=== PATIENT | female | born 2000 | race Caucasian/White ===

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

== ENCOUNTER 2020-06-27 15:03 | Emergency (ER) | payer OTHER | END 2020-06-27 15:26 | disposition left against medical advice (07) | LOC: MW.ED 15:03 | DX: Z53.21 Procedure and treatment not carried out due to patient leaving prior to being seen by health care provider (principal) ==

== ENCOUNTER 2020-06-29 00:10 | Emergency (ER) | payer OTHER ==
[2020-06-29] MEDS ORDERED: Sodium Chloride 0.9% 2.5 ML Syringe FLUSH PRN (00:34)
[2020-06-29] MEDS ORDERED: Sodium Chloride 0.9% 10 ML Syringe FLUSH PRN (00:34)
[2020-06-29] MEDS ORDERED: Piperacillin/Tazobactam 4.5 GM in Sodium Chloride 0.9% 100 ML IV ONE (00:34)
[2020-06-29] MEDS ORDERED: Morphine 4 MG/ML Syringe IVPUSH ONE (00:37)
[2020-06-29] MEDS ORDERED: Ondansetron 4 MG/2 ML SDV IVPUSH ONE (00:37)
[2020-06-29] MEDS ORDERED: Acetaminophen 500 MG Tab PO ONE (00:38)
--- NOTE | 2020-06-29 00:43 | EDM.PDOC ---
ED HPI GENERAL MEDICAL PROBLEM - General Chief Complaint: General Stated Complaint: ABDOMINAL PAIN, FEVER, BACK PAIN Time Seen by Provider: 06/29/20 00:34 - History of Present Illness INITIAL COMMENTS - FREE TEXT/NARRATIVE: CHIEF COMPLAINT(S): Abdominal pain HISTORY OF PRESENT ILLNESS: This is a 20-year-old woman without any significant past medical history who comes to the emergency department with a chief complaint of abdominal pain. The patient states that yesterday she had a fever of 105. She states that she has been experiencing abdominal pain which is severe 10 out of 10 in the right upper quadrant and right back. She states that she has had some associated nausea but denies any vomiting. She denies any other radiation of the pain. She states that nothing makes the pain better and nothing seems to exacerbate it. It seems to be constant. She denies any dysuria, hematuria, vaginal discharge or vaginal bleeding. She denies any history of kidney stones. She denies any chest pain or shortness of breath. REVIEW OF SYSTEMS: Constitutional: Positive for fever Eyes: Denies eye pain Ears, Nose, Mouth, & Throat: Denies earache Cardiovascular: Denies chest pain Respiratory: Denies shortness of breath Gastrointestinal: Positive for abdominal pain, nausea. Denies vomiting, diarrhea, hematochezia, hematemesis, bilious emesis Genitourinary: Denies hematuria dysuria, vaginal bleeding, vaginal discharge Skin:Denies a rash Neurological: Denies blurred vision Psychiatric: Denies depression PAST MEDICAL HISTORY: As per history of present illness and as reviewed below otherwise noncontributory. SURGICAL HISTORY: As per history of present illness and as reviewed below otherwise noncontributory. SOCIAL HISTORY: As per history of present illness and as reviewed below otherwise noncontributory. FAMILY HISTORY: As per history of present illness and as reviewed below otherwise noncontributory. EXAMINATION OF ORGAN SYSTEMS/BODY AREAS: Constitutional: Blood pressure is 94/67, heart rate 115, respiratory rate 20 with an oxygen saturation of 97% on room air. Temperature 38.8 oral General: Young woman who appears to be in a significant amount of pain and is crying Psychiatric: Appropriate mood and affect. Eyes: No scleral icterus or conjunctival erythema ENMT: Moist mucous membranes. No pharyngeal erythema Cardiovascular: Tachycardic but regular. No gallops, murmurs, or rubs. Bilateral upper extremity pulses symmetric and intact. No peripheral edema. No JVD. Respiratory: Lungs clear to auscultation bilaterally. No wheezes, rales, or rhonchi. Gastrointestinal: Soft, nondistended, severe tenderness to palpation in the right upper quadrant with positive Bustos sign. Negative McBurney sign. No rebound or guarding. Normoactive bowel sounds Genitourinary: No suprapubic tenderness mild right CVA tenderness. Musculoskeletal: Normal range of motion. Skin: No lesions or abrasions. Neurological: Alert, GCS 15 MEDICAL DECISION MAKING AND COURSE IN THE ED WITH INTERPRETATION/REVIEW OF DIAGNOSTIC STUDIES: This is a 20-year-old woman without any significant past medical history who comes to the emergency department with tachycardia, fever, and borderline hypotension with right upper quadrant abdominal pain. There are no signs of a surgical abdomen at this time however differential includes pancreatitis, choledocholithiasis, cholecystitis, pyelonephritis. Will obtain a septic work-up and provide the patient with 30 cc/kg of lactated Ringer's. We will provide the patient with morphine and Zofran. We will also obtain a CT abdomen pelvis with IV contrast. The patient will be placed on cardiac monitoring and pulse oximetry. Will obtain a chest x-ray and a urinalysis. Laboratory: CBC reveals a leukocytosis of 12.3 with left shift. Hemoglobin is 11.9 hematocrit is 34.2. INR is normal. Lactate is 0.8. CMP reveals hyponatremia 133, hyperglycemia at 111, hypoalbuminemia at 2.7. Urinalysis was a clean catch and was small for leukocyte esterase, positive for nitrites, and small for blood. WBC count 4-8. Interpretation: Positive The radiological images were viewed by myself along with reading the report from the radiologist. Chest x-ray does not reveal any acute cardiopulmonary process. CT abdomen pelvis with IV contrast reveals delayed enhancement of the right kidney with ill-defined areas of decreased cortical enhancement. There is mild thickening enhancement of the renal pelvis. This is most likely due to pyelonephritis and infections pyelitis. Cannot rule out renal obstructing stone given IV contrast. After labs and imaging I did reevaluate the patient. I did discuss there at the time and like to admit her to the hospital for IV antibiotics. She stated that she does not want to be admitted and would rather go home. I discussed with her that I do believe that she requires IV antibiotics and admission. At the time of this discussion the patient is alert and oriented x4. I encouraged her to stay however the patient elected to leave AMA. The patient was apprised of the potential risks of leaving the hospital AGAINST MEDICAL ADVICE. They include serious complications, permanent disability, and . At the time of my interview with the patient, the patient was alert, oriented, and capable. I urged the patient to return to the hospital as soon as possible to complete their evaluation and treatment. I encouraged the patient to return to the emergency department. I prescribed the patient with antibiotics and a primary care follow-up. DISPOSITION: Patient left AGAINST MEDICAL ADVICE CONDITION: Serious PROCEDURES: None FINAL IMPRESSION(S)/DIAGNOSES: 1. Acute sepsis secondary to pyelonephritis Chirag Joaquin M.D. generalized Pain Score (Numeric/FACES): 8 - Related Data Allergies Allergy/AdvReac Type Severity Reaction Status Date / Time No Known Allergies Allergy Verified 06/29/20 00:20 Home Meds: Home Meds Amoxicillin 500 mg PO BID 10/30/19 [History] Ciprofloxacin [Ciprofloxacin HCl] 500 mg PO BID #28 tab 06/29/20 [Rx] Past Medical History HEENT History: Reports: None Cardiovascular History: Reports: None Respiratory History: Reports: None Gastrointestinal History: Reports: None Genitourinary History: Reports: None DRESS MARKER History: Reports: None Musculoskeletal History: Reports: None Neurological History: Reports: None Psychiatric History: Reports: None Endocrine/Metabolic History: Reports: None Insulin Pump Model and Glue Cook: None Hematologic History: Reports: None Immunologic History: Reports: None Oncologic (Cancer) History: Reports: None Dermatologic History: Reports: None - Infectious Disease History Infectious Disease History: Reports: None - Past Surgical History Head Surgeries/Procedures: Reports: None Social & Family History - Family History Family Medical History: No Pertinent Family History - Tobacco Use Tobacco Use Status *Q: Current Every Day Tobacco User Years of Tobacco use: 7 Packs/Tins Daily: 0.5 - Caffeine Use Caffeine Use: Reports: None - Recreational Drug Use Recreational Drug Use: No ED ROS GENERAL - Review of Systems Review Of Systems: See Below ED EXAM, GENERAL - Physical Exam Exam: See Below Course - Vital Signs Last Recorded V/S: Last Vital Signs Temp 37.0 C 06/29/20 04:00 Pulse 79 06/29/20 04:00 Resp 18 06/29/20 04:00 BP 104/56 L 06/29/20 04:00 Pulse Ox 98 06/29/20 04:00 - Orders/Labs/Meds Orders: Active Orders 24 hr Category Date Time Status CORONAVIRUS COVID-19 KVNG [MOLEC] Stat Lab 06/29/20 00:43 Ordered CULTURE BLOOD [BC] Stat Lab 06/29/20 00:40 Received CULTURE BLOOD [BC] Stat Lab 06/29/20 00:58 Received CULTURE URINE [RM] Stat Lab 06/29/20 00:25 Received Blood Culture x2 Reflex Set [OM.PC] Stat Oth 06/29/20 00:34 Ordered Pulse Oximetry Continuous Monitoring [OM.PC] Routine Oth 06/29/20 00:34 Ordered Saline Lock Insert [OM.PC] Stat Oth 06/29/20 00:34 Ordered Severe Sepsis Onset Time [OM.PC] Stat Oth 06/29/20 00:34 Ordered Labs: Laboratory Tests 06/29/20 06/29/20 06/29/20 Range/Units 00:25 00:25 00:25 WBC 12.03 H (4.0-11.0) K/uL RBC 3.72 L (4.30-5.90) M/uL Hgb 11.9 L (12.0-16.0) g/dL Hct 34.2 L (36.0-46.0) % MCV 91.9 (80.0-98.0) fL MCH 32.0 (27.0-32.0) pg MCHC 34.8 (31.0-37.0) g/dL RDW Std Deviation 39.5 (28.0-62.0) fl RDW Coeff of Ron 12 (11.0-15.0) % Plt Count 168 (150-400) K/uL MPV 9.90 (7.40-12.00) fL Add Manual Diff YES Neutrophils % (Manual) 60 (48.0-80.0) % Band Neutrophils % 9 % Lymphocytes % (Manual) 17 (16.0-40.0) % Monocytes % (Manual) 14 (0.0-15.0) % Absolute Seg Neuts 7.2 H (1.4-5.7) Band Neutrophils # 1.1 Lymphocytes # (Manual) 2.0 (0.6-2.4) Monocytes # (Manual) 1.7 H (0.0-0.8) INR Lactate (0.20-2.00) mmol/L Sodium (136-145) mmol/L Potassium (3.5-5.1) mmol/L Chloride (98-107) mmol/L Carbon Dioxide (21.0-32.0) mmol/L BUN (7.0-18.0) mg/dL Creatinine (0.6-1.0) mg/dL Est Cr Clr Drug Dosing mL/min Estimated GFR (MDRD) ml/min Glucose (74-106) mg/dL Calcium (8.5-10.1) mg/dL Total Bilirubin (0.2-1.0) mg/dL AST (15-37) IU/L ALT (14-63) IU/L Alkaline Phosphatase (46-116) U/L Total Protein (6.4-8.2) g/dL Albumin (3.4-5.0) g/dL Globulin (2.6-4.0) g/dL Albumin/Globulin Ratio (0.9-1.6) Lipase (73-393) U/L Urine Color YELLOW Urine Appearance SLT CLOUDY Urine pH 6.5 (5.0-8.0) Ur Specific [place] 1.020 (1.001-1.035) Urine Protein 100 H (NEGATIVE) mg/dL Urine Glucose (UA) NEGATIVE (NEGATIVE) mg/dL Urine Ketones NEGATIVE (NEGATIVE) mg/dL Urine Occult Blood SMALL H (NEGATIVE) Urine Nitrite POSITIVE H (NEGATIVE) Urine Bilirubin NEGATIVE (NEGATIVE) Urine Urobilinogen 2.0 H (<2.0) EU/dL Ur Leukocyte Esterase SMALL H (NEGATIVE) Urine RBC 0-1 (0-2/HPF) Urine WBC 4-8 (0-5/HPF) Ur Epithelial Cells FEW (NONE-FEW) Urine Bacteria 2+ H (NEGATIVE) Urine Mucus LIGHT (NONE-MOD) Urine HCG, Qual NEGATIVE (NEGATIVE) 06/29/20 06/29/20 06/29/20 Range/Units 00:25 00:25 00:25 WBC (4.0-11.0) K/uL RBC (4.30-5.90) M/uL Hgb (12.0-16.0) g/dL Hct (36.0-46.0) % MCV (80.0-98.0) fL MCH (27.0-32.0) pg MCHC (31.0-37.0) g/dL RDW Std Deviation (28.0-62.0) fl RDW Coeff of Ron (11.0-15.0) % Plt Count (150-400) K/uL MPV (7.40-12.00) fL Add Manual Diff Neutrophils % (Manual) (48.0-80.0) % Band Neutrophils % % Lymphocytes % (Manual) (16.0-40.0) % Monocytes % (Manual) (0.0-15.0) % Absolute Seg Neuts (1.4-5.7) Band Neutrophils # Lymphocytes # (Manual) (0.6-2.4) Monocytes # (Manual) (0.0-0.8) INR 1.12 Lactate 0.8 (0.20-2.00) mmol/L Sodium 133 L (136-145) mmol/L Potassium 3.9 (3.5-5.1) mmol/L Chloride 99 (98-107) mmol/L Carbon Dioxide 22.1 (21.0-32.0) mmol/L BUN 13 (7.0-18.0) mg/dL Creatinine 1.0 (0.6-1.0) mg/dL Est Cr Clr Drug Dosing 80.75 mL/min Estimated GFR (MDRD) > 60.0 ml/min Glucose 111 H (74-106) mg/dL Calcium 8.6 (8.5-10.1) mg/dL Total Bilirubin 0.4 (0.2-1.0) mg/dL AST 35 (15-37) IU/L ALT 44 (14-63) IU/L Alkaline Phosphatase 91 (46-116) U/L Total Protein 6.8 (6.4-8.2) g/dL Albumin 2.7 L (3.4-5.0) g/dL Globulin 4.1 H (2.6-4.0) g/dL Albumin/Globulin Ratio 0.7 L (0.9-1.6) Lipase 57 L (73-393) U/L Urine Color Urine Appearance Urine pH (5.0-8.0) Ur Specific [place] (1.001-1.035) Urine Protein (NEGATIVE) mg/dL Urine Glucose (UA) (NEGATIVE) mg/dL Urine Ketones (NEGATIVE) mg/dL Urine Occult Blood (NEGATIVE) Urine Nitrite (NEGATIVE) Urine Bilirubin (NEGATIVE) Urine Urobilinogen (<2.0) EU/dL Ur Leukocyte Esterase (NEGATIVE) Urine RBC (0-2/HPF) Urine WBC (0-5/HPF) Ur Epithelial Cells (NONE-FEW) Urine Bacteria (NEGATIVE) Urine Mucus (NONE-MOD) Urine HCG, Qual (NEGATIVE) Meds: Medications Discontinued Medications Generic Name Dose Route Start Last Admin Trade Name Freq PRN Reason Stop Dose Admin Acetaminophen 1,000 mg 06/29/20 00:38 06/29/20 00:48 Tylenol Extra Strength PO 06/29/20 00:39 1,000 mg ONETIME ONE Administration Lactated Ringer's 1,000 mls @ 2,000 mls/hr 06/29/20 00:45 06/29/20 01:23 Ringers, Lactated IV 2,000 mls/hr ASDIRECTED JANNETH Administration Piperacillin Sod/Tazobactam 100 mls @ 200 mls/hr 06/29/20 00:34 06/29/20 01:20 Sod 4.5 gm/ Sodium Chloride IV 06/29/20 01:03 200 mls/hr STAT ONE Administration Vancomycin HCl 1 gm/ Dextrose/ 250 mls @ 167 mls/hr 06/29/20 00:34 06/29/20 01:27 Water IV 06/29/20 02:03 Not Given ONETIME ONE Sodium Chloride 1,000 mls @ 999 mls/hr 06/29/20 00:48 06/29/20 00:49 Normal Saline IV 06/29/20 01:48 999 mls/hr NOW STA Administration Sodium Chloride Confirm 06/29/20 01:14 06/29/20 01:28 Normal Saline (Advbag) Administered 06/29/20 01:15 Not Given Dose 250 mls @ as directed .ROUTE .STK-MED ONE Vancomycin HCl 1 gm/ Sodium 250 mls @ 166 mls/hr 06/29/20 01:21 06/29/20 01:25 Chloride IV 06/29/20 02:51 166 mls/hr NOW STA Administration Iopamidol 100 ml 06/29/20 01:55 06/29/20 01:56 Isovue Multipack-370 (76%) IVPUSH 06/29/20 01:56 100 ml ONETIME STA Administration Morphine Sulfate 4 mg 06/29/20 00:37 06/29/20 00:48 Morphine IVPUSH 06/29/20 00:38 Not Given ONETIME ONE Ondansetron HCl 4 mg 06/29/20 00:37 06/29/20 00:48 Zofran IVPUSH 06/29/20 00:38 4 mg ONETIME ONE Administration Sodium Chloride 10 ml 06/29/20 00:34 Saline Flush FLUSH ASDIRECTED PRN Keep Vein Open Sodium Chloride 2.5 ml 06/29/20 00:34 Saline Flush FLUSH ASDIRECTED PRN Keep Vein Open Vancomycin HCl Confirm 06/29/20 01:14 06/29/20 01:27 Vancocin Administered 06/29/20 01:15 Not Given Dose 1 gm .ROUTE .STK-MED ONE Departure - Departure Time of Disposition: 04:00 Disposition: Against Medical Advice 07 Condition: Serious Clinical Impression: Pyelonephritis - Discharge Information *PRESCRIPTION DRUG MONITORING PROGRAM REVIEWED*: No *COPY OF PRESCRIPTION DRUG MONITORING REPORT IN PATIENT STEF: No Prescriptions: Ciprofloxacin [Ciprofloxacin HCl] 500 mg PO BID #28 tab Instructions: Pyelonephritis, Adult, Pyelonephritis, Adult, [id number] Referrals: PCP,None [Primary Care Provider] - Forms: ED Department Discharge Additional Instructions: Your evaluated today on an emergent basis. I do believe you require admission for IV antibiotics given the infection in your kidney. Given the contrasted study we used we cannot rule out a kidney stone as the cause of the infection. You have elected to sign AGAINST MEDICAL ADVICE today. Please return to the emergency department for further evaluation and treatment. I did prescribe you ciprofloxacin 500 mg to be taken twice a day for the next 14 days. Take Tylenol and Motrin for fever and pain. You will be given a primary care physician contact in order to arrange follow-up. However we do recommend returning to the emergency department. The patient was apprised of the potential risks of leaving the hospital AGAINST MEDICAL ADVICE. They include serious complications, permanent disability, and . At the time of my interview with the patient, the patient was alert, oriented, and capable. I urged the patient to return to the hospital as soon as possible to complete their evaluation and treatment. [facility] - Primary Care [address] [place] [address] [facility] [address] [place] [address] The patient is informed of any results of their evaluation and diagnostic workup and all questions are answered. They are given discharge instructions and return precautions. The patient is stable for discharge. The patient states they understand and agree with the plan and that they will return if their symptoms get worse or if they have any new concerns. The following information is given to patients seen in the emergency department who are being discharged to home. This information is to outline your options for follow-up care. We provide all patients seen in our emergency department with a follow-up referral. The need for follow-up, as well as the timing and circumstances, are variable depending upon the specifics of your emergency department visit. If you don't have a primary care physician on staff, we will provide you with a referral. We always advise you to contact your personal physician following an emergency department visit to inform them of the circumstance of the visit and for follow-up with them and/or the need for any referrals to a consulting specialist. The emergency department will also refer you to a specialist when appropriate. This referral assures that you have the opportunity for follow-up care with a specialist. All of these measure are taken in an effort to provide you with optimal care, which includes your follow-up. Under all circumstances we always encourage you to contact your private physician who remains a resource for coordinating your care. When calling for follow-up care, please make the office aware that this follow-up is from your recent emergency room visit. If for any reason you are refused follow-up, please contact the [facility] Emergency Department at and asked to speak to the emergency department charge nurse. Sepsis Event Note (ED) - Evaluation Sepsis Screening Result: No Definite Risk - Focused Exam Vital Signs: Vital Signs Temp Temp Pulse Resp BP Pulse Ox 06/29/20 04:00 37.0 C 79 18 104/56 L 98 06/29/20 01:55 38.2 C H 105 H 18 104/58 L 97 06/29/20 01:15 100 20 116/67 99 06/29/20 00:20 38.8 C H 115 H 20 94/67 97 - My Orders Last 24 Hours: My Active Orders 06/29/20 00:25 CULTURE URINE [RM] Stat 06/29/20 00:34 Blood Culture x2 Reflex Set [OM.PC] Stat Pulse Oximetry Continuous Monitoring [OM.PC] Routine Saline Lock Insert [OM.PC] Stat Severe Sepsis Onset Time [OM.PC] Stat 06/29/20 00:40 CULTURE BLOOD [BC] Stat 06/29/20 00:43 CORONAVIRUS COVID-19 KVNG [MOLEC] Stat 06/29/20 00:58 CULTURE BLOOD [BC] Stat - Assessment/Plan Last 24 Hours: My Active Orders 06/29/20 00:25 CULTURE URINE [RM] Stat 06/29/20 00:34 Blood Culture x2 Reflex Set [OM.PC] Stat Pulse Oximetry Continuous Monitoring [OM.PC] Routine Saline Lock Insert [OM.PC] Stat Severe Sepsis Onset Time [OM.PC] Stat 06/29/20 00:40 CULTURE BLOOD [BC] Stat 06/29/20 00:43 CORONAVIRUS COVID-19 KVNG [MOLEC] Stat 06/29/20 00:58 CULTURE BLOOD [BC] Stat
[2020-06-29] MEDS ORDERED: Lactated Ringers 1,000 ML IV SCH (00:45)
[2020-06-29] MEDS ORDERED: Sodium Chloride 0.9% 1,000 ML IV STA (00:48)
[2020-06-29 00:53] LABS: BLOOD UREA NITROGEN,BUN 13 mg/dL (7.0-18.0); CARBON DIOXIDE,CO2 22.1 mmol/L (21.0-32.0); CHLORIDE,CL 99 mmol/L (98-107); GLUCOSE RANDOM 111 mg/dL (74-106); LIPASE 57 U/L (73-393); POTASSIUM,K 3.9 mmol/L (3.5-5.1); SODIUM,NA 133 mmol/L (136-145)
--- NOTE | 2020-06-29 01:06 | CR ---
INDICATION: Sepsis TECHNIQUE: Chest radiograph 1 view COMPARISON: None FINDINGS: Mediastinum: The mediastinum is normal in appearance. The heart silhouette is normal in size and morphology. Lung: Both lungs are unremarkable in appearance. No sign of pleural effusion seen. No pneumothorax is identified. Bone and Soft tissue: Unremarkable for age. IMPRESSION: 1. No acute cardiopulmonary disease is seen. Dictated by: Andrew Logan MD @ 06/29/2020 01:04:50 (Electronically Signed)
[2020-06-29] MEDS ORDERED: Vancomycin 1 GM AdvVial ONE (01:14)
[2020-06-29] MEDS ORDERED: Sodium Chloride 0.9% 250 ML ONE (01:14)
[2020-06-29] MEDS ORDERED: Iopamidol 755 MG/ML 500 ML Multipack Bottle IVPUSH STA (01:55)
--- NOTE | 2020-06-29 02:14 | CT ---
INDICATION: Abdominal pain right upper quadrant TECHNIQUE: CT Abdomen and pelvis with i.v. contrast. Coronal and sagittal reformats were obtained. CONTRAST: 100 mL Isovue 370 COMPARISON: None FINDINGS: Lower chest: Unremarkable. Liver: Unremarkable. Spleen: Unremarkable. Pancreas: Unremarkable. Gallbladder: Unremarkable. Kidney: Delayed enhancement of the right kidney is present with ill-defined areas of decreased cortical enhancement seen. Mild thickening and enhancement of the renal pelvis urothelium is seen. Small cortical cysts are present within the right kidney, measuring up to 1.6 cm. Contrast excretion is seen within the left renal collecting system which limits evaluation for renal stones. Adrenal: Unremarkable. Bowel: Unremarkable. The appendix is normal in appearance and size. The appendix is best seen on coronal images 38-39. Vascular: Unremarkable. Lymph: Unremarkable. Peritoneum: Unremarkable. No pneumoperitoneum is seen. No significant ascites is noted. Pelvis: There is a cyst or follicle present in the left ovary measuring 2.3 cm. Soft tissue: Unremarkable. Bone: Unremarkable for age. IMPRESSION: 1. Delayed enhancement of the right kidney is present with ill-defined areas of decreased cortical enhancement seen. Mild thickening and enhancement of the renal pelvis urothelium is seen. The cortical and urothelial findings are most likely due to pyelonephritis and infectious pyelitis. While no obstructing hyperdense calculi or significant hydroureter identified, the remote possibility of a renal obstruction cannot be completely excluded. Dictated by Andrew Logan MD @ 06/29/2020 2:13:26 AM Please note that all CT scans at this facility use dose modulation, iterative reconstruction, and/or weight-based dosing when appropriate to reduce radiation dose to as low as reasonably achievable. Dictated by: Andrew Logan MD @ 06/29/2020 02:13:31 (Electronically Signed)
== END 2020-06-29 04:00 | disposition left against medical advice (07) ==
LOC: MW.ED 00:10
DX: A41.9 Sepsis, unspecified organism (principal); N12 Tubulo-interstitial nephritis, not specified as acute or chronic; E87.1 Hypo-osmolality and hyponatremia; F17.210 Nicotine dependence, cigarettes, uncomplicated
CPT/HCPCS: 36415; 71045; 74177; 80053; 81001; 81025; 83605; 83690; 85025; 85610; 87040; 87086; 87088; 87186; 96365; 96367; 96375; 99284; A9270; J2405; J2543; J3370; J7030; J7050; J7120; Q9967; 99283

== ENCOUNTER 2020-08-21 02:57 | Emergency (ER) | payer OTHER ==
--- NOTE | 2020-08-21 03:17 | EDM.PDOC ---
ED HPI GENERAL MEDICAL PROBLEM - General Chief Complaint: Behavioral/Psych Stated Complaint: EMERGENCY COMMITTAL Time Seen by Provider: 08/21/20 03:10 - History of Present Illness INITIAL COMMENTS - FREE TEXT/NARRATIVE: HISTORY AND PHYSICAL: History of present illness: This is a 20-year-old female who presents to the ER today under the custody of the [facility] department secondary to concerns of a suicide attempt. Per [facility]'s deputy, they were dispatched to patient's home secondary to concern regarding possible overdose. Upon arrival to the home they obtained history from the patient's boyfriend. According to the boyfriend, the deputy sheriff generalist/bailiff reports that earlier this evening, the patient and her boyfriend got into an argument and the patient grabbed a loaded revolver. The patient and her boyfriend were both outside in the front yard and making threats of self-harm. According to the boyfriend, the patient kept putting the gun up against her head making comments that she would harm herself. Apparently both the boyfriend and the patient were on their knees when this was occurring and the boyfriend was pleading for her not to shoot herself. At some point, the boyfriend reports that he was able to remove the gun from her custody. The patient went inside the house and shortly after being inside her home, the boyfriend found her unresponsive on the bed. At this point, he had a friend who was there called 911 secondary to concerns of an overdose. Upon arrival by the [facility] deputies however, the patient was alert and awake and taking a shower. They report that they knocked on the bathroom door and she willingly opened the door and came out on her own. At this point, after hearing the story from the boyfriend, the property insurance inspector's placed a hold on her and brought her to the ER for psychiatric admission secondary to concerns regarding self-harm and placing a gun to her forehead. The [facility] department reports that the boyfriend told him that approximately 6 months ago the patient was 20 pounds heavier than she is now and that she has been utilizing a significant amount of methamphetamines. Upon my evaluation of the patient, she does not deny that all this happened but she reports that she was just making empty threats and that she reports that the gun was not loaded. According to the Human Resources Supervisor's deputies, their evaluation of the gun reported that the gun was indeed loaded when they arrived. Patient denies any history of hypertension, diabetes, liver, lung, kidney problems. She reports that she was recently diagnosed with a urinary tract infection. Patient denies any abdominal or chest surgeries. Patient has no known drug allergies. Patient denies any tobacco alcohol or drugs to me although there is a question of methamphetamine use and the police report that she does have outstanding warrants. Patient denies any recent fevers, shakes, chills, nausea, vomiting, diarrhea. Patient reports that she does have some dysuria and some left-sided flank pain and suprapubic discomfort. Patient denies any melena or bright red blood per rectum. Patient has any chest pain or shortness of breath. Review of systems: As per history of present illness and below otherwise all systems reviewed and negative. Past medical history: As per history of present illness and as reviewed below otherwise noncontributory. Surgical history: As per history of present illness and as reviewed below otherwise noncontributory. Social history: No reported history of drug or alcohol abuse. Family history: As per history of present illness and as reviewed below otherwise noncontribu tory. Physical exam: This patient was seen and evaluated during the 2019 SARS-CoV-2 novel coronavirus pandemic period. Community viral transmission is ongoing at time of this encounter and the emergency department is operating under pandemic response procedures. Constitutional: Patient is oriented to person, place, and time. Appears well- developed and well-nourished. No distress. HEENT: Moist mucous membranes Head: Normocephalic and atraumatic Eyes: Right eye exhibits no discharge. Left eye exhibits no discharge. No scleral icterus Neck: Normal range of motion. No tracheal deviation present. Cardiovascular: Normal rate and regular rhythm. Pulmonary: Effort normal, no respiratory distress. Abd: Soft, nondistended, no rebound/guarding, no psoas or obturator signs, no tenderness at Mcberney's point, no Bustos's sign. Pt does not present with an exam that would be consistent with an acute surgical abdomen at this time, mild tenderness palpation suprapubic region Musculoskeletal: Normal range of motion Neurologic: Alert and oriented to person, place and time. Skin: [place], warm and dry. Psychiatric: Normal mood and affect. Behavior is normal. Judgment and thought content normal. Nursing note and vital signs have been reviewed Diagnostics: CBC, CMP, urinalysis, acetaminophen, salicylate, EKG, UDS, test, EKG, coronavirus test Therapeutics: [] Assessment and plan: This is a 20-year-old female who presents ER today as a court hold by [facility] deputy secondary to concerns of suicidality. Per [facility] department, patient had placed a gun to her head and made threats of harming herself to her boyfriend. Patient reports that she does have a history of depression, anxiety in the past. She reports that she has had 1 admission approximately 5 to 6 years ago as a child secondary to depression and suicidal ideation. Patient reports to me that she has a daughter and that she is currently not suicidal and that she "would never harm herself because of her child. " Patient's labs were reviewed which were unremarkable. Patient with normal CBC, CMP, acetaminophen/salicylate negative, urine drug screen positive for methamphetamine, urinalysis consistent with urinary tract infection. 1. UTI: Patient will get started on Pyridium and Macrobid here in the ED. Patient will need to be on Macrobid 100 mg p.o. twice daily x7 days and Pyridium 200 mg p.o. 3 times daily x2 days to assist with discomfort. Two. Suicidal ideation/suicide attempt: I discussed the case with Dr. Delgado at [facility] and she is agreed to assist with excepting patient for transfer for further mental health evaluation. [facility] contacted: No available psychiatric beds [facility] contacted: No available psychiatric beds [facility] Patient be transferred to [facility] under custody of [facility] deputy. Definitive disposition and diagnosis as appropriate pending reevaluation and review of above. upper abdomen/back Pain Score (Numeric/FACES): 1 - Related Data Allergies Allergy/AdvReac Type Severity Reaction Status Date / Time No Known Allergies Allergy Verified 08/21/20 03:12 Home Meds: Home Meds . [No Known Home Meds] 08/21/20 [History] Past Medical History HEENT History: Reports: None Cardiovascular History: Reports: None Respiratory History: Reports: None Gastrointestinal History: Reports: None Genitourinary History: Reports: None TIME CHECKER History: Reports: None Musculoskeletal History: Reports: None Neurological History: Reports: None Psychiatric History: Reports: None Endocrine/Metabolic History: Reports: None Insulin Pump Model and Public Address System Installer: None Hematologic History: Reports: None Immunologic History: Reports: None Oncologic (Cancer) History: Reports: None Dermatologic History: Reports: None - Infectious Disease History Infectious Disease History: Reports: None - Past Surgical History Head Surgeries/Procedures: Reports: None Social & Family History - Family History Family Medical History: No Pertinent Family History - Caffeine Use Caffeine Use: Reports: None ED ROS GENERAL - Review of Systems Review Of Systems: See Below ED EXAM, GENERAL - Physical Exam Exam: See Below #1 Interpretation EKG Interpretation Comments: EKG: As interpreted by ER physician: Nicky: Nonspecific ST-T wave abnormalities Normal axis No evidence of ST elevation VT Normal sinus rhythm heart rate of 69 Course - Vital Signs Last Recorded V/S: Last Vital Signs Temp 97.8 F 08/21/20 03:01 Pulse 64 08/21/20 04:48 Resp 16 08/21/20 04:48 BP 119/64 08/21/20 04:48 Pulse Ox 97 08/21/20 04:48 - Orders/Labs/Meds Orders: Active Orders 24 hr Category Date Time Status EKG Documentation Completion [RC] STAT Care 08/21/20 03:09 Active CULTURE URINE [RM] Stat Lab 08/21/20 04:24 Received Labs: Laboratory Tests 08/21/20 08/21/20 08/21/20 Range/Units 03:13 03:13 03:17 WBC 8.83 (4.0-11.0) K/uL RBC 4.08 L (4.30-5.90) M/uL Hgb 12.8 (12.0-16.0) g/dL Hct 38.8 (36.0-46.0) % MCV 95.1 (80.0-98.0) fL MCH 31.4 (27.0-32.0) pg MCHC 33.0 (31.0-37.0) g/dL RDW Std Deviation 46.9 (28.0-62.0) fl RDW Coeff of Ron 14 (11.0-15.0) % Plt Count 454 H (150-400) K/uL MPV 9.30 (7.40-12.00) fL Neut % (Auto) 55.6 (48.0-80.0) % Lymph % (Auto) 36.7 (16.0-40.0) % [place] % (Auto) 5.9 (0.0-15.0) % Eos % (Auto) 0.6 (0.0-7.0) % Baso % (Auto) 1.2 (0.0-1.5) % Neut # (Auto) 4.9 (1.4-5.7) K/uL Lymph # (Auto) 3.2 H (0.6-2.4) K/uL [place] # (Auto) 0.5 (0.0-0.8) K/uL Eos # (Auto) 0.1 (0.0-0.7) K/uL Baso # (Auto) 0.1 (0.0-0.1) K/uL Nucleated RBC % 0.0 /100WBC Nucleated RBCs # 0 K/uL Sodium 139 (136-145) mmol/L Potassium 3.7 (3.5-5.1) mmol/L Chloride 103 (98-107) mmol/L Carbon Dioxide 26.0 (21.0-32.0) mmol/L BUN 11 (7.0-18.0) mg/dL Creatinine 1.0 (0.6-1.0) mg/dL Est Cr Clr Drug Dosing 80.75 mL/min Estimated GFR (MDRD) > 60.0 ml/min Glucose 98 (74-106) mg/dL Calcium 9.0 (8.5-10.1) mg/dL Magnesium 2.1 (1.8-2.4) mg/dL Total Bilirubin 0.5 (0.2-1.0) mg/dL AST 16 (15-37) IU/L ALT 22 (14-63) IU/L Alkaline Phosphatase 76 (46-116) U/L Total Protein 7.2 (6.4-8.2) g/dL Albumin 3.5 (3.4-5.0) g/dL Globulin 3.7 (2.6-4.0) g/dL Albumin/Globulin Ratio 0.9 (0.9-1.6) TSH 3rd Generation 1.19 (0.52-4.13) uIU/mL Urine Color Urine Appearance Urine pH (5.0-8.0) Ur Specific [place] (1.001-1.035) Urine Protein (NEGATIVE) mg/dL Urine Glucose (UA) (NEGATIVE) mg/dL Urine Ketones (NEGATIVE) mg/dL Urine Occult Blood (NEGATIVE) Urine Nitrite (NEGATIVE) Urine Bilirubin (NEGATIVE) Urine Urobilinogen (<2.0) EU/dL Ur Leukocyte Esterase (NEGATIVE) Urine RBC (0-2/HPF) Urine WBC (0-5/HPF) Ur Epithelial Cells (NONE-FEW) Urine Bacteria (NEGATIVE) Urine HCG, Qual (NEGATIVE) Salicylates 2.9 (0-20) mg/dL Urine Opiates Screen (NEGATIVE) Ur Oxycodone Screen (NEGATIVE) Urine Methadone Screen (NEGATIVE) Acetaminophen <2.0 ug/mL Ur Barbiturates Screen (NEGATIVE) Ur Phencyclidine Scrn (NEGATIVE) Ur Amphetamine Screen (NEGATIVE) U Methamphetamines Scrn (NEGATIVE) U Benzodiazepines Scrn (NEGATIVE) U Cocaine Metab Screen (NEGATIVE) U Marijuana (THC) Screen (NEGATIVE) Ethyl Alcohol <3 mg/dL SARS-CoV-2 RNA (KVNG) NEGATIVE (NEGATIVE) 08/21/20 08/21/20 08/21/20 Range/Units 04:24 04:24 04:24 WBC (4.0-11.0) K/uL RBC (4.30-5.90) M/uL Hgb (12.0-16.0) g/dL Hct (36.0-46.0) % MCV (80.0-98.0) fL MCH (27.0-32.0) pg MCHC (31.0-37.0) g/dL RDW Std Deviation (28.0-62.0) fl RDW Coeff of Ron (11.0-15.0) % Plt Count (150-400) K/uL MPV (7.40-12.00) fL Neut % (Auto) (48.0-80.0) % Lymph % (Auto) (16.0-40.0) % [place] % (Auto) (0.0-15.0) % Eos % (Auto) (0.0-7.0) % Baso % (Auto) (0.0-1.5) % Neut # (Auto) (1.4-5.7) K/uL Lymph # (Auto) (0.6-2.4) K/uL [place] # (Auto) (0.0-0.8) K/uL Eos # (Auto) (0.0-0.7) K/uL Baso # (Auto) (0.0-0.1) K/uL Nucleated RBC % /100WBC Nucleated RBCs # K/uL Sodium (136-145) mmol/L Potassium (3.5-5.1) mmol/L Chloride (98-107) mmol/L Carbon Dioxide (21.0-32.0) mmol/L BUN (7.0-18.0) mg/dL Creatinine (0.6-1.0) mg/dL Est Cr Clr Drug Dosing mL/min Estimated GFR (MDRD) ml/min Glucose (74-106) mg/dL Calcium (8.5-10.1) mg/dL Magnesium (1.8-2.4) mg/dL Total Bilirubin (0.2-1.0) mg/dL AST (15-37) IU/L ALT (14-63) IU/L Alkaline Phosphatase (46-116) U/L Total Protein (6.4-8.2) g/dL Albumin (3.4-5.0) g/dL Globulin (2.6-4.0) g/dL Albumin/Globulin Ratio (0.9-1.6) TSH 3rd Generation (0.52-4.13) uIU/mL Urine Color YELLOW Urine Appearance SLT CLOUDY Urine pH 5.5 (5.0-8.0) Ur Specific [place] 1.010 (1.001-1.035) Urine Protein NEGATIVE (NEGATIVE) mg/dL Urine Glucose (UA) NEGATIVE (NEGATIVE) mg/dL Urine Ketones NEGATIVE (NEGATIVE) mg/dL Urine Occult Blood NEGATIVE (NEGATIVE) Urine Nitrite POSITIVE H (NEGATIVE) Urine Bilirubin NEGATIVE (NEGATIVE) Urine Urobilinogen 0.2 (<2.0) EU/dL Ur Leukocyte Esterase SMALL H (NEGATIVE) Urine RBC 0-2 (0-2/HPF) Urine WBC 55-60 (0-5/HPF) Ur Epithelial Cells MANY (NONE-FEW) Urine Bacteria 2+ H (NEGATIVE) Urine HCG, Qual NEGATIVE (NEGATIVE) Salicylates (0-20) mg/dL Urine Opiates Screen NEGATIVE (NEGATIVE) Ur Oxycodone Screen NEGATIVE (NEGATIVE) Urine Methadone Screen NEGATIVE (NEGATIVE) Acetaminophen ug/mL Ur Barbiturates Screen NEGATIVE (NEGATIVE) Ur Phencyclidine Scrn NEGATIVE (NEGATIVE) Ur Amphetamine Screen POSITIVE (NEGATIVE) U Methamphetamines Scrn POSITIVE (NEGATIVE) U Benzodiazepines Scrn NEGATIVE (NEGATIVE) U Cocaine Metab Screen NEGATIVE (NEGATIVE) U Marijuana (THC) Screen NEGATIVE (NEGATIVE) Ethyl Alcohol mg/dL SARS-CoV-2 RNA (KVNG) (NEGATIVE) Meds: Medications Discontinued Medications Generic Name Dose Route Start Last Admin Trade Name Freq PRN Reason Stop Dose Admin Nitrofurantoin Macrocrystals 100 mg 08/21/20 05:32 Macrobid PO 08/21/20 05:33 ONETIME ONE Departure - Departure Time of Disposition: 05:45 Disposition: DC/Tfer to Psych Hosp/Unit 65 Condition: Good Clinical Impression: Depressive disorder, Self-harm, Suicidal ideation, Methamphetamine abuse Urinary tract infection Qualifiers: Urinary tract infection type: acute cystitis Hematuria presence: without hematuria Qualified Code(s): N30.00 - Acute cystitis without hematuria - Discharge Information Referrals: PCP,None [Primary Care Provider] - Forms: ED Department Discharge Sepsis Event Note (ED) - Focused Exam Vital Signs: Vital Signs Temp Pulse Resp BP Pulse Ox 08/21/20 04:48 64 16 119/64 97 08/21/20 03:50 67 16 120/77 98 08/21/20 03:20 74 16 109/66 99 08/21/20 03:01 97.8 F 78 16 114/69 97 - My Orders Last 24 Hours: My Active Orders 08/21/20 03:09 EKG Documentation Completion [RC] STAT 08/21/20 04:24 CULTURE URINE [RM] Stat - Assessment/Plan Last 24 Hours: My Active Orders 08/21/20 03:09 EKG Documentation Completion [RC] STAT 08/21/20 04:24 CULTURE URINE [RM] Stat
[2020-08-21 03:50] LABS: BLOOD UREA NITROGEN,BUN 11 mg/dL (7.0-18.0); CHLORIDE,CL 103 mmol/L (98-107); GLUCOSE RANDOM 98 mg/dL (74-106); POTASSIUM,K 3.7 mmol/L (3.5-5.1); SODIUM,NA 139 mmol/L (136-145)
[2020-08-21 03:51] LABS: ACETAMINOPHEN <2.0 ug/mL
[2020-08-21] MEDS ORDERED: Nitrofurantoin Monohydrate/Macrocrystalline 100 MG Cap PO ONE (05:32)
[2020-08-21] MEDS ORDERED: Phenazopyridine 200 MG Tab PO ONE (05:48)
== END 2020-08-21 06:20 ==
LOC: MW.ED 02:57
DX: F32.9 Major depressive disorder, single episode, unspecified (principal); N30.00 Acute cystitis without hematuria; F15.10 Other stimulant abuse, uncomplicated; Z20.822 Contact with and (suspected) exposure to COVID-19
CPT/HCPCS: 36415; 80053; 80143; 80179; 80305; 80307; 81001; 81025; 83735; 84443; 85025; 87086; 87635; 93005; 99285; A9270; 93010; 99284; U0002

== ENCOUNTER 2021-04-16 18:18 | Emergency (ER) | payer OTHER ==
--- NOTE | 2021-04-16 21:04 | EDM.PDOC ---
ED HPI GENERAL MEDICAL PROBLEM - General Chief Complaint: Abdominal Pain Stated Complaint: STOMACH PAIN Time Seen by Provider: 04/16/21 19:43 - History of Present Illness INITIAL COMMENTS - FREE TEXT/NARRATIVE: HISTORY AND PHYSICAL: History of present illness: This is a 21-year-old female with a history significant for kidney infection in the past who denies any history of kidney stones who presents ER today complaining of bilateral lower back pain consistent with her prior kidney infections. Patient has any recent fevers, shakes, chills, nausea, vomiting, diarrhea, dysuria, frequency, urgency, hematuria. Patient reports that she has been able to tolerate p.o. solids and liquids well. Patient denies any vaginal discharge. Review of systems: As per history of present illness and below otherwise all systems reviewed and negative. Past medical history: As per history of present illness and as reviewed below otherwise noncontributory. Surgical history: As per history of present illness and as reviewed below otherwise noncontributory. Social history: No reported history of drug abuse. Family history: As per history of present illness and as reviewed below otherwise noncontributory. Physical exam: This patient was seen and evaluated during the 2019 SARS-CoV-2 novel coronavirus pandemic period. Community viral transmission is ongoing at time of this encounter and the emergency department is operating under pandemic response procedures. Constitutional: Patient is oriented to person, place, and time. Appears well- developed and well-nourished. No distress. HEENT: Moist mucous membranes Head: Normocephalic and atraumatic Eyes: Right eye exhibits no discharge. Left eye exhibits no discharge. No scleral icterus Neck: Normal range of motion. No tracheal deviation present. Cardiovascular: Normal rate and regular rhythm. Pulmonary: Effort normal, no respiratory distress. Abd: Soft, nondistended, no rebound/guarding, no psoas or obturator signs, no tenderness at Mcberney's point, no Bustos's sign. Pt does not present with an exam that would be consistent with an acute surgical abdomen at this time. Mild tenderness palpation to the suprapubic region. Musculoskeletal: Normal range of motion Neurologic: Alert and oriented to person, place and time. Skin: [place], warm and dry. Psychiatric: Normal mood and affect. Behavior is normal. Judgment and thought content normal. Nursing note and vital signs have been reviewed Patient complaining of tenderness palpation to her bilateral flank areas. Patient does not present with signs and symptoms consistent with retroperiton eal-itis. Diagnostics: [] Therapeutics: [] Assessment and plan: 21-year-old female who presents ER today secondary to concern for kidney infections. Urinalysis and urine test were ordered and patient was sent to the bathroom in order to obtain a sample. I was notified by the RN at approximately 8:45 PM that the patient is no longer in her room that she left prior to completion of her evaluation. No urine has been obtained from the patient at this time. Definitive disposition and diagnosis as appropriate pending reevaluation and review of above. lower back Pain Score (Numeric/FACES): 8 - Related Data Allergies Allergy/AdvReac Type Severity Reaction Status Date / Time No Known Allergies Allergy Verified 04/16/21 19:25 Home Meds: Home Meds Gabapentin [Neurontin] 1 tab PO BID 04/16/21 [History] Past Medical History - Past Health History Medical/Surgical History: Denies Medical/Surgical History HEENT History: Reports: None, Other (See Below) Other HEENT History: surgery to bifurcate tongue (cosmetic) Cardiovascular History: Reports: None Respiratory History: Reports: None Gastrointestinal History: Reports: None Genitourinary History: Reports: Pyelonephritis Other Genitourinary History: states close to renal failure MATERIAL CONTROL ASSOCIATE History: Reports: None Musculoskeletal History: Reports: None Neurological History: Reports: None Psychiatric History: Reports: ADHD, Anxiety, Depression Endocrine/Metabolic History: Reports: None Insulin Pump Model and Loin Puller: None Hematologic History: Reports: None Immunologic History: Reports: None Oncologic (Cancer) History: Reports: None Dermatologic History: Reports: None - Infectious Disease History Infectious Disease History: Reports: None - Past Surgical History Head Surgeries/Procedures: Reports: None HEENT Surgical History: Reports: None, Oral Surgery Social & Family History - Family History Family Medical History: No Pertinent Family History - Tobacco Use Tobacco Use Status *Q: Current Every Day Tobacco User Years of Tobacco use: 5 Packs/Tins Daily: 0.5 - Caffeine Use Caffeine Use: Reports: Coffee, Energy Drinks, Soda, Tea - Recreational Drug Use Recreational Drug Use: Yes Recreational Drug Type: Reports: Marijuana/Hashish ED ROS GENERAL - Review of Systems Review Of Systems: See Below ED EXAM, GENERAL - Physical Exam Exam: See Below Course - Vital Signs Last Recorded V/S: Last Vital Signs Temp 97.7 F 04/16/21 19:21 Pulse 91 04/16/21 19:21 Resp 20 04/16/21 19:21 BP 109/66 04/16/21 19:21 Pulse Ox 100 04/16/21 19:21 - Orders/Labs/Meds Orders: Active Orders 24 hr Category Date Time Status HCG QUALITATIVE,URINE [URCHEM] Stat Lab 04/16/21 19:20 Ordered UA RFX FRANKIE AND CULT IF INDIC [URIN] Stat Lab 04/16/21 19:20 Ordered Departure - Departure Time of Disposition: 21:04 Disposition: Against Medical Advice 07 Condition: Undetermined Clinical Impression: Back pain, Left against medical advice - Discharge Information Referrals: PCP,None [Primary Care Provider] - Sepsis Event Note (ED) - Evaluation Sepsis Screening Result: No Definite Risk - Focused Exam Vital Signs: Vital Signs Temp Pulse Resp BP Pulse Ox 04/16/21 19:21 97.7 F 91 20 109/66 100
== END 2021-04-16 20:20 | disposition left against medical advice (07) ==
LOC: MW.ED 18:18
DX: M54.50 Low back pain, unspecified (principal); Z72.0 Tobacco use
CPT/HCPCS: 99283

== ENCOUNTER 2021-05-26 03:16 | Emergency (ER) | payer SELFPAY ==
[2021-05-26] MEDS ORDERED: Nitrofurantoin Monohydrate/Macrocrystalline 100 MG Cap PO ONE (03:55)
[2021-05-26] MEDS ORDERED: Acetaminophen 325 MG Tab PO ONE (03:59)
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
== END 2021-05-26 04:28 | disposition home or self-care (01) ==
LOC: MW.ED 03:16
DX: S30.0XXA Contusion of lower back and pelvis, initial encounter (principal); N39.0 Urinary tract infection, site not specified; Z72.0 Tobacco use; X58.XXXA Exposure to other specified factors, initial encounter
CPT/HCPCS: 81001; 99283; A9270

== ENCOUNTER 2021-05-31 00:36 | Emergency (ER) | payer SELFPAY ==
--- NOTE | 2021-05-31 00:46 | EDM.PDOC ---
ED HPI GENERAL MEDICAL PROBLEM - General Chief Complaint: Laceration Stated Complaint: FINGER LACERATION Time Seen by Provider: 05/31/21 00:40 - History of Present Illness INITIAL COMMENTS - FREE TEXT/NARRATIVE: History of present illness: [] Patient cut her right index finger just prior to arrival. It was bleeding a lot. She has not had a tetanus shot in the last 5 years. Review of systems: As per history of present illness and below otherwise all systems reviewed and negative. Past medical history: As per history of present illness and as reviewed below otherwise noncontributory. Surgical history: As per history of present illness and as reviewed below otherwise noncontributory. Social history: No reported history of drug or alcohol abuse. Family history: As per history of present illness and as reviewed below otherwise noncontributory. Physical exam: Constitutional - well developed, well-nourished and in no acute distress HEENT - normocephalic, no evidence of trauma - external nose and mouth normal - no mass in neck and no JVD - mucosae moist EYES - full EOM, PERRL, no icterus - no evidence of inflammation, injection, or drainage Respiratory - no respiratory distress, equal bilateral expansion Musculoskeletal no gross deformity of long bones or joints - no tenderness, swelling or edema Neurologic - Alert and oriented times four - CN II-XII grossly intact - motor sensory and coordination symmetrically normal Psychiatric - appropriate mood and affect with normal thought content Hematologic - No petechiae or purpura - mucosa appropriate color and sclera not pale - normal nail bed color and refill Integument -6 mm laceration of the volar distal segment of the second digit of the right hand. No rash or evidence of trauma - normal turgor Diagnostics: [] Therapeutics: [] Impression: [] Plan: [] Definitive disposition and diagnosis as appropriate pending reevaluation and review of above. Right Finger-Index Pain Score (Numeric/FACES): 9 - Related Data Allergies Allergy/AdvReac Type Severity Reaction Status Date / Time No Known Allergies Allergy Verified 05/31/21 00:49 Home Meds: Home Meds . 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) Cardiovascular History: Reports: None Respiratory History: Reports: None Gastrointestinal History: Reports: None Genitourinary History: Reports: Pyelonephritis Other Genitourinary History: states close to renal failure PLATING EQUIPMENT TENDER History: Reports: None Musculoskeletal History: Reports: None Neurological History: Reports: None Psychiatric History: Reports: ADHD, Anxiety, Depression Endocrine/Metabolic History: Reports: None Insulin Pump Model and Social Work Case Manager: None Hematologic History: Reports: None Immunologic History: Reports: None Oncologic (Cancer) History: Reports: None Dermatologic History: Reports: None - Infectious Disease History Infectious Disease History: Reports: None - Past Surgical History Head Surgeries/Procedures: Reports: None HEENT Surgical History: Reports: None, Oral Surgery Social & Family History - Family History Family Medical History: No Pertinent Family History - Caffeine Use Caffeine Use: Reports: Coffee, Energy Drinks, Soda, Tea ED ROS GENERAL - Review of Systems Review Of Systems: Comprehensive ROS is negative, except as noted in HPI. ED EXAM, SKIN/RASH Exam: See Below Text/Narrative:: My physical exam is in the HPI ED SKIN PROCEDURES - Laceration/Wound Repair Right Digit - 2nd (Index) Appearance: Superficial Anesthetic Type: Other (No anesthetic) Skin Prep: Saline Saline Irrigation (cc's): 250 Exploration/Debridement/Repair: In a Bloodless Field Closed with: Wound Adhesive Lac/Wound length In cm: 0.6 Course - Vital Signs Last Recorded V/S: Last Vital Signs Temp 36.7 C 05/31/21 00:46 Pulse 94 05/31/21 00:46 Resp 20 05/31/21 00:46 BP 126/77 05/31/21 00:46 Pulse Ox 97 05/31/21 00:46 - Orders/Labs/Meds Orders: Active Orders 24 hr Category Date Time Status Vaccine to be Administered/Admin Charge [RC] ASDIRECTED Care 05/31/21 00:51 Ordered Diphth,Pertuss(Acell),Tet Vac [Boostrix] Med 05/31/21 00:51 Once 0.5 ml IM .ONCE ONE Departure - Departure Time of Disposition: 00:54 Disposition: Home, Self-Care 01 Condition: Good Clinical Impression: Laceration of right index finger - Discharge Information Instructions: Laceration Care, Adult Referrals: PCP,None [Primary Care Provider] - Forms: ED Department Discharge Additional Instructions: Follow-up primary care [facility] - Primary Care [address] [place] [address] [facility] [address] [place] [address] The following information is given to patients seen in the emergency department who are being discharged to home. This information is to outline your options for follow-up care. We provide all patients seen in our emergency department with a follow-up referral. The need for follow-up, as well as the timing and circumstances, are variable depending upon the specifics of your emergency department visit. If you don't have a primary care physician on staff, we will provide you with a referral. We always advise you to contact your personal physician following an emergency department visit to inform them of the circumstance of the visit and for follow-up with them and/or the need for any referrals to a consulting specialist. The emergency department will also refer you to a specialist when appropriate. This referral assures that you have the opportunity for follow-up care with a specialist. All of these measure are taken in an effort to provide you with optimal care, which includes your follow-up. Under all circumstances we always encourage you to contact your private physician who remains a resource for coordinating your care. When calling for follow-up care, please make the office aware that this follow-up is from your recent emergency room visit. If for any reason you are refused follow-up, please contact the [facility] Emergency Department at and asked to speak to the emergency department charge nurse. Sepsis Event Note (ED) - Focused Exam Vital Signs: Vital Signs Temp Pulse Resp BP Pulse Ox 05/31/21 00:46 36.7 C 94 20 126/77 97 - My Orders Last 24 Hours: My Active Orders 05/31/21 00:51 Vaccine to be Administered/Admin Charge [RC] ASDIRECTED Diphth,Pertuss(Acell),Tet Vac [Boostrix] 0.5 ml IM .ONCE ONE - Assessment/Plan Last 24 Hours: My Active Orders 05/31/21 00:51 Vaccine to be Administered/Admin Charge [RC] ASDIRECTED Sharon Berman(Acell),Tet Vac [Boostrix] 0.5 ml IM .ONCE ONE
[2021-05-31] MEDS ORDERED: Diphtheria,Pertussis(Acell),Tetanus Vaccine 0.5 ML Syringe IM ONE (00:51)
[2021-05-31] MEDS ORDERED: Octyl 2-Cyanoacrylate 1 APPLIC TUBE TOP ONE (00:52)
== END 2021-05-31 01:34 | disposition home or self-care (01) ==
LOC: MW.ED 00:36
DX: S61.210A Laceration without foreign body of right index finger without damage to nail, initial encounter (principal); Z23 Encounter for immunization; W26.8XXA Contact with other sharp object(s), not elsewhere classified, initial encounter
CPT/HCPCS: 12001; 90471; 90715; 99282; A9270

== ENCOUNTER 2022-09-26 21:01 | Emergency (ER) | payer SELFPAY ==
[2022-09-26 22:35] LABS: CARBON DIOXIDE,CO2 30.9 mmol/L (21.0-32.0); POTASSIUM,K 3.6 mmol/L (3.5-5.1)
[2022-09-26] MEDS ORDERED: Ibuprofen 600 MG Tab PO ONE (23:05)
[2022-09-26] MEDS ORDERED: Cephalexin 500 MG Cap PO ONE (23:05)
== END 2022-09-26 23:16 ==
LOC: MW.ED 21:01
DX: K08.89 Other specified disorders of teeth and supporting structures (principal); F15.99 Other stimulant use, unspecified with unspecified stimulant-induced disorder
CPT/HCPCS: 36415; 80053; 80305; 81001; 85025; 87086; 99283; A9270

== ENCOUNTER 2022-10-01 17:37 | Emergency (ER) | payer SELFPAY | END 2022-10-01 19:22 | disposition home or self-care (01) | LOC: MW.ED 17:37 | DX: S00.83XA Contusion of other part of head, initial encounter (principal); W22.09XA Striking against other stationary object, initial encounter | CPT/HCPCS: 99283 ==

== ENCOUNTER 2023-02-26 21:07 | Emergency (ER) | payer SELFPAY ==
[2023-02-26] MEDS ORDERED: Sodium Chloride 0.9% 2.5 ML Syringe FLUSH PRN (21:13)
[2023-02-26] MEDS ORDERED: Ketorolac 30 MG/ML SDV IVPUSH ONE (21:13)
[2023-02-26] MEDS ORDERED: Ondansetron 4 MG/2 ML SDV IVPUSH ONE (21:13)
[2023-02-26] MEDS ORDERED: Sodium Chloride 0.9% 10 ML Syringe FLUSH PRN (21:13)
[2023-02-26] MEDS ORDERED: Sodium Chloride 0.9% 1,000 ML IV ONE (21:13)
[2023-02-26] MEDS ORDERED: LORazepam 2 MG/ML SDV IVPUSH ONE ×2 (21:14→22:25)
[2023-02-26 21:35] LABS: BASOPHILS ABSOLUTE AUTO 0.1 K/uL (0.0-0.1); BASOPHILS PERCENT AUTO 1.1 % (0.0-1.5); EOSINOPHILS PERCENT AUTO 0.4 % (0.0-7.0); HEMATOCRIT 35.7 % (36.0-46.0); HEMOGLOBIN 12.1 g/dL (12.0-16.0); LYMPHOCYTES ABSOLUTE AUTO 2.8 K/uL (0.6-2.4); LYMPHOCYTES PERCENT AUTO 37.3 % (16.0-40.0); MEAN CORPUSCULAR HEMOGLOBIN 31.7 pg (27.0-32.0); MEAN CORPUSCULAR HGB CONC 33.9 g/dL (31.0-37.0); MEAN CORPUSCULAR VOLUME 93.5 fL (80.0-98.0); MONOCYTES ABSOLUTE AUTO 0.9 K/uL (0.0-0.8); MONOCYTES PERCENT AUTO 12.3 % (0.0-15.0); NEUTROPHILS ABSOLUTE AUTO 3.7 K/uL (1.4-5.7); NEUTROPHILS PERCENT AUTO 48.9 % (48.0-80.0); NRBC ABSOLUTE 0 K/uL; PLATELET COUNT,PLT 331 K/uL (150-400); RED BLOOD CELL COUNT 3.82 M/uL (4.30-5.90); WHITE BLOOD CELL COUNT,WBC 7.51 K/uL (4.0-11.0)
[2023-02-26 22:02] LABS: ALANINE AMINOTRANSFERASE,ALT 83 IU/L (14-63); ALBUMIN 3.7 g/dL (3.4-5.0); ALKALINE PHOSPHATASE 74 U/L (46-116); ASPARTATE AMNIOTRANSFERASE,AST 96 IU/L (15-37); BILIRUBIN TOTAL 0.6 mg/dL (0.2-1.0); BLOOD UREA NITROGEN,BUN 16 mg/dL (7.0-18.0); CALCIUM 8.7 mg/dL (8.5-10.1); CARBON DIOXIDE,CO2 24.7 mmol/L (21.0-32.0); CHLORIDE,CL 108 mmol/L (98-107); GLUCOSE RANDOM 113 mg/dL (74-106); LIPASE 13 U/L (16-77); POTASSIUM,K 3.1 mmol/L (3.5-5.1); PROTEIN TOTAL,TP 7.3 g/dL (6.4-8.2); SODIUM,NA 143 mmol/L (136-145)
[2023-02-26 22:03] LABS: ESTIMATED GFR 82 mL/min (>60); ETHANOL BLOOD MEDICAL < 3.0 mg/dL
[2023-02-26] MEDS ORDERED: LORazepam 2 MG/ML SDV ONE (22:19)
[2023-02-26 22:56] LABS: BILIRUBIN,URINE NEGATIVE (NEGATIVE); GLUCOSE,URINE NEGATIVE (NEGATIVE); KETONES,URINE NEGATIVE (NEGATIVE); LEUKOCYTE ESTERASE,URINE TRACE (NEGATIVE); NITRITE,URINE NEGATIVE (NEGATIVE); OCCULT BLOOD,URINE SMALL (NEGATIVE); PROTEIN,URINE 30 mg/dL (NEGATIVE)
[2023-02-26 23:04] LABS: APPEARANCE,URINE CLOUDY; COLOR,URINE AMBER
[2023-02-26 23:05] LABS: BACTERIA,URINE FEW (NEGATIVE); EPITHELIAL CELLS,URINE MODERATE (NONE-FEW); MUCUS,URINE MANY (NONE-MOD); WBC,URINE 16-21 (0-5/HPF)
[2023-02-26 23:06] LABS: AMPHETAMINES SCREEN, URINE PRESUMPTIVE POSITIVE (CUTOFF=500); BARBITURATE SCREEN,URINE NEGATIVE (CUTOFF=200); BENZODIAZEPINES SCREEN,URINE NEGATIVE (CUTOFF=150); BUPRENORPHINE SCREEN,URINE NEGATIVE (CUTOFF=10); METHADONE SCREEN, URINE NEGATIVE (CUTOFF=200); METHAMPHETAMINES SCREEN, URINE PRESUMPTIVE POSITIVE (CUTOFF=500); OXYCODONE SCREEN,URINE NEGATIVE (CUT0FF=100); PCP SCREEN,URINE NEGATIVE (CUTOFF=25); PROPOXYPHENE SCREEN,URINE NEGATIVE (CUTOFF=300); THC SCREEN,URINE 20 NG/ML NEGATIVE (CUTOFF=50)
== END 2023-02-27 03:39 ==
LOC: MW.ED 21:07
DX: R10.30 Lower abdominal pain, unspecified (principal); S93.401A Sprain of unspecified ligament of right ankle, initial encounter; F15.10 Other stimulant abuse, uncomplicated; F14.10 Cocaine abuse, uncomplicated; I10 Essential (primary) hypertension; Z79.899 Other long term (current) drug therapy; Z02.89 Encounter for other administrative examinations
CPT/HCPCS: 36415; 73610; 74176; 80053; 80305; 80307; 81001; 83690; 84703; 85025; 87086; 96361; 96374; 96375; 96376; 99284; J1885; J2060; J2405; J3490; J7030

== ENCOUNTER 2023-03-07 10:12 | Emergency (ER) | payer SELFPAY ==
[2023-03-07 13:44] LABS: APPEARANCE,URINE CLOUDY; BILIRUBIN,URINE NEGATIVE (NEGATIVE); GLUCOSE,URINE NEGATIVE (NEGATIVE); KETONES,URINE TRACE mg/dL (NEGATIVE); LEUKOCYTE ESTERASE,URINE SMALL (NEGATIVE); NITRITE,URINE POSITIVE (NEGATIVE); OCCULT BLOOD,URINE NEGATIVE (NEGATIVE); PROTEIN,URINE TRACE mg/dL (NEGATIVE)
[2023-03-07 13:48] LABS: COLOR,URINE DARK YELLOW
[2023-03-07 13:55] LABS: AMPHETAMINES SCREEN, URINE PRESUMPTIVE POSITIVE (CUTOFF=500); BARBITURATE SCREEN,URINE NEGATIVE (CUTOFF=200); BENZODIAZEPINES SCREEN,URINE NEGATIVE (CUTOFF=150); BUPRENORPHINE SCREEN,URINE NEGATIVE (CUTOFF=10); METHADONE SCREEN, URINE NEGATIVE (CUTOFF=200); METHAMPHETAMINES SCREEN, URINE PRESUMPTIVE POSITIVE (CUTOFF=500); OXYCODONE SCREEN,URINE NEGATIVE (CUT0FF=100); PCP SCREEN,URINE NEGATIVE (CUTOFF=25); PROPOXYPHENE SCREEN,URINE NEGATIVE (CUTOFF=300); THC SCREEN,URINE 20 NG/ML NEGATIVE (CUTOFF=50)
[2023-03-07 13:56] LABS: RBC,URINE 0-2 (0-2/HPF)
[2023-03-07 13:57] LABS: BACTERIA,URINE 4+ (NEGATIVE); EPITHELIAL CELLS,URINE MODERATE (NONE-FEW)
[2023-03-07] MEDS ORDERED: Cephalexin 500 MG Cap PO STA (14:10)
[2023-03-07] MEDS ORDERED: cefTRIAXone 1 GM Vial IM STA (14:10)
[2023-03-07] MEDS ORDERED: Lidocaine 1% 2 ML ONE (14:23)
[2023-03-07] MEDS ORDERED: Lidocaine 1% PF 2 ML SDV INJECT ONE (14:33)
== END 2023-03-07 14:57 ==
LOC: MW.ED 10:12
DX: N30.00 Acute cystitis without hematuria (principal); F15.10 Other stimulant abuse, uncomplicated; F14.10 Cocaine abuse, uncomplicated; Z32.02 Encounter for pregnancy test, result negative; Z79.899 Other long term (current) drug therapy
CPT/HCPCS: 80305; 81001; 81025; 87086; 96372; 99284; A9270; J0696; 87088; 87186; 99283; J3490